=== PATIENT | female | born 1945 | race Caucasian/White ===

== ENCOUNTER 2017-06-08 13:12 | Outpatient (CLI) | payer MEDICARE, BC | END 2017-06-08 13:13 | disposition home or self-care (01) | LOC: BICMAMMO 13:12 | PROVIDERS: ATTEND Obstetrics & Gynecology | DX: Z12.31 Encounter for screening mammogram for malignant neoplasm of breast (principal) | CPT/HCPCS: 77063; 77067 ==

== ENCOUNTER 2018-05-02 16:00 | Outpatient (CLI) | payer MEDICARE, BC ==
--- NOTE | 2018-05-02 16:35 | RAD ---
CHEST TWO VIEWS: History: Consolidation, cough. Comparison: 12-29-17 FINDINGS: The lungs are clear. No pneumothorax or effusion. Cardiac silhouette and mediastinal contours are wit hin normal limits. Fibrosis of both upper lobes. Right upper quadrant surgical clips. IMPRESSION: No acute intrathoracic abnormality. POS: [facility]
== END 2018-05-02 16:01 | disposition home or self-care (01) ==
LOC: RAD-FRANK 16:00
PROVIDERS: ATTEND Nurse Practitioner Family
DX: J18.1 Lobar pneumonia, unspecified organism (principal); R05 Cough
CPT/HCPCS: 71046

== ENCOUNTER 2018-06-13 08:36 | Outpatient (CLI) | payer MEDICARE, BC ==
--- NOTE | 2018-06-13 09:50 | MMO ---
Bilateral MAMMO Bilat Screen [facility]DI+[facility]AO. CLINICAL HISTORY: Patient is 73 years old and is seen for screening. The patient has no family history of breast cancer. The patient has no personal history of cancer. VIEWS: The views performed were: bilateral craniocaudal with tomosynthesis and bilateral mediolateral oblique with tomosynthesis. FILMS COMPARED: The present examination has been compared to prior imaging studies performed at [facility] on 03/04/2012, 03/15/2013, 03/16/2014, 03/26/2015, 04/01/2016 and 06/08/2017. MAMMOGRAM FINDINGS: There are scattered fibroglandular densities. There are stable benign appearing calcifications seen in both breasts. There are no suspicious masses, suspicious calcifications, or new areas of architectural distortion. IMPRESSION: THERE IS NO MAMMOGRAPHIC EVIDENCE OF MALIGNANCY. A ROUTINE FOLLOW-UP MAMMOGRAM IN 1 YEAR IS RECOMMENDED. THE RESULTS OF THIS EXAM WERE SENT TO THE PATIENT. ACR BI-RADS Category 2 - Benign finding MAMMOGRAPHY NOTE: 1. A negative mammogram report should not delay a biopsy if a dominant of clinically suspicious mass is present. 2. Approximately 10% to 15% of breast cancers are not detected by mammography. 3. Adenosis and dense breasts may obscure an underlying neoplasm.
== END 2018-06-13 08:37 | disposition home or self-care (01) ==
LOC: BICMAMMO 08:36
PROVIDERS: ATTEND Obstetrics & Gynecology
DX: Z12.31 Encounter for screening mammogram for malignant neoplasm of breast (principal)
CPT/HCPCS: 77063; 77067

== ENCOUNTER 2019-05-30 17:49 | Inpatient (IN) | payer MEDICARE, BC ==
[2019-05-30] MEDS ORDERED: Pantoprazole 40 MG VIAL ONE (18:15)
[2019-05-30 18:23] LABS: #Basophils 0.1 thou/uL (0.0-0.2); #Eosinphils 0.1 thou/uL (0.0-0.7); #Monocytes 0.7 thou/uL (0.11-0.59); #Neutrophils 6.7 thou/uL (1.40-6.50); %Basophils 0.9 % (0.0-1.0); %Eosinophils 1.1 % (0.0-10.0); %Lymphocytes 20.6 % (21.0-51.0); %Monocytes 7.2 % (0.0-10.0); %Neutrophils 70.2 % (42.0-75.0); Mean Corpuscular HGB CONC 34.1 g/dL (32.0-36.0); Mean Corpuscular Hemoglobin 31.9 pg (27.0-31.0); Mean Corpuscular Volume 93.5 fL (78.0-98.0); Mean Platelet Volume 8.5 fL (7.4-10.4); Platelet Count 224 thou/uL (130-400); RBC Distribution Width 11.5 % (11.5-14.5); Red Blood Cell (RBC) Count 3.12 mill/uL (4.20-5.40); White Blood Cell (WBC) Count 9.6 thou/uL (4.8-10.8)
[2019-05-30 18:32] LABS: PTT 23.7 SEC (22.9-36.1); Prothrombin Time 13.2 SEC (12.0-14.7)
[2019-05-30 18:45] LABS: ALT (SGPT) 16 U/L (8-55); AST (SGOT) 19 U/L (5-34); Albumin 3.3 g/dL (3.4-4.8); Alkaline Phosphatase 61 U/L (40-110); Anion Gap 12 mmol/L (10-20); BUN (Urea Nitrogen) 39 mg/dL (9.8-20.1); Bilirubin, Total 0.2 mg/dL (0.2-1.2); Calc. Creatinine Clearance 0 mL/min (70-130); Calcium 7.9 mg/dL (7.8-10.44); Carbon Dioxide 23 mmol/L (23-31); Chloride 111 mmol/L (98-107); Estimated GFR-MDRD 78; Glucose 113 mg/dL (83-110); Potassium 4.1 mmol/L (3.5-5.1); Protein, Total 5.3 g/dL (6.0-8.3); Sodium 142 mmol/L (136-145)
--- NOTE | 2019-05-30 21:26 | HP ---
CHIEF COMPLAINT: Black stool and dizziness. HISTORY OF PRESENT ILLNESS: Ms. Villeda is a 74-year-old female with past medical history of duodenal ulcers, not on any medications except baby aspirin, presented to the emergency room with black stools for the last 3 days associated with weakness, dizziness, and fatigue. The patient has a history of GI bleeding in the past and according to her, she had ulcers and at one point, she was anemic with her hemoglobin as low as 7, requiring blood transfusions. Workup today in the emergency room, the patient's hemoglobin is 10.0. Vital signs; blood pressure is 135/80, heart rate is 85. Rectal exam done by the ED showed dark/black stools. The patient is also on IV proton pump inhibitor. The patient is being admitted to the hospital for further management. The patient denies abdominal pain, vomiting, or diarrhea. PAST MEDICAL HISTORY: Duodenal ulcers. PAST SURGICAL HISTORY: 1. Endoscopy. 2. Hysterectomy. 3. Cholecystectomy. SOCIAL HISTORY: Denies smoking, alcohol drinking, or drug abuse. FAMILY HISTORY: Reviewed and noncontributory. HOME MEDICATIONS: Please see home medication reconciliation form for updated medications. ALLERGIES: ALLERGIC TO WHEAT CONTAINING PRODUCTS. REVIEW OF SYSTEMS: Review of 14 systems negative except what is mentioned in History of Present Illness. PHYSICAL EXAMINATION: GENERAL: The patient is awake, alert, does not appear to be in distress. VITAL SIGNS: Blood pressure 135/80, pulse is 85, respiratory rate is 16, pulse oximetry is 98% on room air, and temperature 98.4. HEAD AND NECK: Normocephalic, atraumatic. NECK: Supple. No JVD. CHEST: Fair bilateral air entry. HEART: S1, S2. Regular. ABDOMEN: Soft, nontender. Bowel sounds present. RECTAL: Exam done by the ED. Please refer to the ED note. NEUROLOGIC: Awake, alert, and oriented x3. No focal findings. PSYCH: Unable to assess. EXTREMITIES: No clubbing, no cyanosis. GENITOURINARY: No suprapubic tenderness. No flank tenderness. LABORATORY DATA: Hemoglobin is 10.0 and platelets 224. Sodium is 142, potassium 4.1, chloride is 111, BUN is 39, and creatinine 0.7. ASSESSMENT: 1. Acute gastrointestinal bleeding, upper. 2. History of duodenal ulcers. 3. Anemia, secondary to blood loss. 4. Weakness. 5. Dizziness. PLAN: 1. Admit. 2. Monitor hemoglobin and hematocrit. 3. IV proton pump inhibitor drip. 4. Consult GI for evaluation and further management. 5. Reconcile home medications. 6. DVT prophylaxis appropriate. 7. Expected length of stay, 2 midnights or more. Job ID: [id number]
[2019-05-30] MEDS: Pantoprazole 80 MG in Sodium Chloride 0.9% 100 ML IVP SCH (23:16)
[2019-05-30] MEDS: Sodium Chloride 0.9% 1,000 ML IV SCH (23:16)
[2019-05-30] MEDS: Acetaminophen 325 MG TAB PO PRN (23:33)
[2019-05-30] MEDS ORDERED: Melatonin 3 MG TAB PO SCH (23:59)
[2019-05-31] LABS: Hemoglobin 8.8 g/dL (12.0-16.0)
[2019-05-31 05:45] LABS: ALT (SGPT) 14 U/L (8-55); AST (SGOT) 18 U/L (5-34); Albumin 2.7 g/dL (3.4-4.8); Alkaline Phosphatase 46 U/L (40-110); Anion Gap 9 mmol/L (10-20); BUN (Urea Nitrogen) 26 mg/dL (9.8-20.1); Bilirubin, Total 0.2 mg/dL (0.2-1.2); Calc. Creatinine Clearance 85 mL/min (70-130); Calcium 7.5 mg/dL (7.8-10.44); Carbon Dioxide 23 mmol/L (23-31); Chloride 113 mmol/L (98-107); Estimated GFR-MDRD 89; Glucose 99 mg/dL (83-110); Potassium 3.7 mmol/L (3.5-5.1); Protein, Total 4.7 g/dL (6.0-8.3); Sodium 141 mmol/L (136-145)
[2019-05-31] MEDS: Pantoprazole 80 MG in Sodium Chloride 0.9% 100 ML IVP SCH (05:48)
[2019-05-31] MEDS ORDERED: Lidocaine 1% PF 5 ML VIAL ONE (10:48)
[2019-05-31] MEDS ORDERED: PROPOFOL 200 MG/20 ML VIAL ONE (10:48)
[2019-05-31] MEDS: Sodium Chloride 0.9% 1,000 ML IV SCH (11:31)
[2019-05-31] MEDS ORDERED: Promethazine HCl 25 MG/ML VIAL IM PRN (12:51)
[2019-05-31] MEDS ORDERED: Promethazine HCl 25 MG/ML VIAL SLOW IVP PRN (12:51)
[2019-05-31] MEDS ORDERED: Ondansetron HCl/PF 4 MG/2 ML Vial IVP PRN (12:51)
--- NOTE | 2019-05-31 13:30 | OP ---
DATE OF PROCEDURE: 05/31/2019 PROCEDURE PERFORMED: Esophagogastroduodenoscopy with biopsy. PREOPERATIVE DIAGNOSIS: 74-year-old female with history of melena, dyspepsia, indigestion, and past history of bleeding ulcer. She underwent EGD. POSTOPERATIVE DIAGNOSES: 1. Normal esophageal mucosa, no esophagitis seen. 2. Normal stomach except for mild antral gastritis. 3. 1 cm sized ulceration in the duodenal bulb, nonbleeding. At the time of endoscopy, no active bleeding seen. DESCRIPTION OF PROCEDURE: The patient was placed on her left lateral position and was given sedation by Anesthesia Department. A Pentax video gastroscope under direct vision passed down the oropharynx, past the GE junction into the stomach and subsequently descending duodenum. At the time of endoscopy, no bleeding seen in the stomach or duodenum. The vocal cords appeared very healthy. The esophageal mucosa appears normal throughout. In the GE junction, no lesion seen. Retroflexion failed to show any pathology in fundus or cardia. In the gastric body, gastric incisura, no lesions. The gastric antrum showed mild antral gastritis. In the duodenal bulb, the patient was found to have an ulceration measuring 1 cm. The base also is very clean. No visible vessel is seen. In the descending duodenum, no pathology. Biopsy obtained from the gastric antrum and gastric body. The stomach decompressed and the scope removed. RECOMMENDATION: 1. Continue pantoprazole. 2. Follow up H and H. 3. Transfuse p.r.n. 4. Diet as tolerated. Job ID: [id number]
--- NOTE | 2019-05-31 14:40 | CON ---
DATE OF CONSULTATION: 05/31/2019 REASON FOR CONSULTATION: History of black tarry stool, generalized weakness, and fatigue. HISTORY OF PRESENT ILLNESS: Ms. Hughes is a very pleasant 74-year-old female, who is very healthy all the life. The patient has no history of hypertension, diabetes, heart disease, or lung disease. The patient has history of bleeding ulcer, I believe, dating back to almost 45 years ago. She had melena at that time and was hospitalized in [place], [place]. She never had endoscopy. She ulcer disease. For several years off and on, she has had this tarry stool and has had treatment for ulcer disease. The patient has done well for several years now. Her was hospitalized here with heart failure and was diagnosed to have metastatic lung cancer. He is undergoing chemotherapy. When her was in the hospital, she was having some dyspepsia, indigestion, and subsequently some GI discomfort. She has been taking some antacids off and on. The patient noticed black tarry stool about 3 days ago. The stool is tarry, and she has had stool everyday. The last time she had a stool was yesterday afternoon. She has had no stool through the night and this morning. She had no more indigestion. No more heartburn. No abdominal pain, nausea, or vomiting. Her bowel movements are fairly regular. Although she has been told to have ulcer disease with bleeding in the past, she never had endoscopy. The patient denies any dysphagia or odynophagia. The patient used to take Aleve on a regular basis twice a day for sacroiliac joint pain, but she quit taking approximately 2 years ago. She does take baby aspirin once a day everyday. She is not taking any other medication. No relevant history. ALLERGIES: DARVON. SHE IS ALLERGIC TO WHEAT-CONTAINING PRODUCTS. SOCIAL HISTORY: She is . Does not smoke or drink alcohol. MEDICAL ILLNESSES: 1. 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 2. History of bleeding ulcer more than 40 years ago and has had 2 or 3 episodes of tarry stool over the years. 3. No history of heart disease. No lung disease. No stroke. No diabetes. 4. Does have history of mild asthma, allergy induced. She is using nebulizer every now and then. SURGERIES: 1. Hysterectomy, partial. 2. Cholecystectomy. 3. She never had endoscopy studies as per the patient. FAMILY HISTORY: There is no family history of any renal malignancy, stroke, heart disease, or lung disease. MEDICATIONS: List reviewed. REVIEW OF SYSTEMS: Ten-point systems reviewed. CONSTITUTIONAL: No history of any weight loss. No fever or chills. Has good exercise tolerance. HEAD: No chronic headache. No syncope. EYES: No diplopia. No double vision. No impaired vision. EARS: No hearing loss. NOSE: No nosebleed. THROAT: No sore throat. No dysphagia. NECK: No stiffness of the joints. BREASTS: No breast masses. LUNGS: No chronic coughing. No hemoptysis, but does have history of late onset asthma and does use nebulizer off and on. CARDIOVASCULAR: No chest pain. No palpitation. No dyspnea, orthopnea, or PND. GI: Melena, dyspepsia, and indigestion recently. : No dysuria, hematuria, or frequency of urination. NEUROMUSCULAR: Not relevant. MUSCULOSKELETAL: History of arthritis and was on Aleve in the past. NEUROPSYCHIATRY: No depression or anxiety. PHYSICAL EXAMINATION: GENERAL: She is a very pleasant female, appears very comfortable. VITAL SIGNS: Her pulse is 80, blood pressure 130/80. HEENT: Conjunctivae are clear. NECK: Supple. No adenitis or thyromegaly noted. CARDIOVASCULAR: First and second heart sounds. LUNGS: Clear to auscultation. ABDOMEN: Soft. No organomegaly. No tenderness. No masses. Bowel sounds are normal. EXTREMITIES: Reveal no edema. CENTRAL NERVOUS SYSTEM: Grossly within normal limits. LABORATORY DATA: From yesterday, hemoglobin 10 and hematocrit 29.2; dropping to 8.8 this morning. WBC 9600, platelet count 224,000, polymorphs 70, lymphocytes 20. Serum chemistries today; sodium 141, potassium 3.7, chloride 113, bicarb 23, BUN is 26 which was 39 yesterday, creatinine 0.65, calcium 7.5, bilirubin 0.2, AST 18, ALT 18, alkaline phosphatase 46. Troponin 0.013. Albumin 2.7. CLINICAL IMPRESSION: 1. A 74-year-old female with history of black tarry stool over the last 3 days. She has anemia on admission. Blood count on admission, hemoglobin 10, dropping to 8.8 today. Her BUN elevated to 39, dropping to 26 today. Based on the history and her lab data, I believe she has bleeding mostly from ulcer disease. 2. History of mild asthma with episodes of wheezing. 3. History of wheat intolerance. 4. Cholecystectomy. 5. Partial hysterectomy. PLAN: 1. Continue PPI. 2. Serial H and H. 3. Transfuse p.r.n. 4. EGD later on today. I will make further recommendations after EGD. Job ID: [id number]
[2019-05-31] MEDS: Acetaminophen 325 MG TAB PO PRN (15:27)
--- NOTE | 2019-05-31 17:44 | PDOC.HOSPP ---
- Subjective Encounter Date: 05/31/19 Encounter Time: 08:45 Subjective: pt up in chair feels a bit dizzy. - Objective Vital Signs & Weight: Vital Signs (12 hours) Temp Pulse Resp BP Pulse Ox 05/31/19 16:28 98.0 F 91 18 108/67 98 05/31/19 13:31 97.9 F 92 18 146/70 H 99 05/31/19 12:00 98.0 F 85 18 128/57 L 98 05/31/19 09:41 98.3 F 84 18 130/56 L 98 05/31/19 08:45 98 Weight Weight 153 lb 6 oz I&O: 05/30/19 05/31/19 06/01/19 06:59 06:59 06:59 Intake Total 630 Output Total 700 Balance -70 Result Diagrams: 05/30/19 23:53 05/31/19 04:13 Hospitalist ROS - Review of Systems Respiratory: denies: cough, dry, shortness of breath, hemoptysis, SOB with excertion, pleuritic pain, sputum, wheezing, other Cardiovascular: reports: light headedness. denies: chest pain, palpitations, orthopnea, paroxysmal noc. dyspnea, edema, other Gastrointestinal: reports: melena. denies: nausea, vomiting, abdominal pain, diarrhea, constipation, other - Medication Medications: Active Medications Generic Name Dose Route Start Last Admin Trade Name Freq PRN Reason Stop Dose Admin Acetaminophen 650 mg 05/30/19 23:20 05/31/19 15:27 Tylenol PO 650 mg Q4H PRN Administration Headache/Fever or Pain Sodium Chloride 1,000 mls @ 75 mls/hr 05/30/19 20:45 05/31/19 11:31 Normal Saline 0.9% IV 1,000 mls .[id number] CATRACHITO Administration - Exam Neck: negative: supple, symmetric, no JVD, no thyromegaly, no lymphadenopathy, no carotid bruit, JVD Heart: negative: RRR, no murmur, no gallops, no rubs, normal peripheral pulses, irregular, diminshed peripheral pulses, murmur present, II/IV, III/IV Respiratory: negative: CTAB, no wheezes, no rales, no ronchi, normal chest expansion, no tachypnea, normal percussion, rales, rhonchi, tachypneic, wheezes Gastrointestinal: negative: soft, non-tender, non-distended, normal bowel sounds , no palpable masses, no hepatomegaly, no splenomegaly, no bruit, no guarding, no rigidity, tender to palpation, distended, diminished bowl sounds, voluntary guarding Hosp A/P (1) Melena Code(s): K92.1 - MELENA Status: Acute (2) Acute blood loss anemia Code(s): D62 - ACUTE POSTHEMORRHAGIC ANEMIA Status: Acute - Plan pt only takes asa for preventative reasons. she has no heart disease and does not take any rx drugs. will continue ppi. she has had melena in the past. she has never had a upper endoscopy in the past. this will be her 4th episode. will check hh and transfuse as needed. gi has been consulted.
[2019-05-31] MEDS ORDERED: Melatonin 3 MG TAB PO SCH (21:00)
[2019-06-01 05:42] LABS: #Basophils 0.1 thou/uL (0.0-0.2); #Eosinphils 0.4 thou/uL (0.0-0.7); #Lymphocytes 2.7 thou/uL (1.20-3.40); #Monocytes 0.6 thou/uL (0.11-0.59); #Neutrophils 4.4 thou/uL (1.40-6.50); %Basophils 1.1 % (0.0-1.0); %Eosinophils 5.1 % (0.0-10.0); %Lymphocytes 33.1 % (21.0-51.0); %Monocytes 6.8 % (0.0-10.0); Hemoglobin 8.5 g/dL (12.0-16.0); Mean Corpuscular HGB CONC 34.5 g/dL (32.0-36.0); Mean Corpuscular Hemoglobin 32.3 pg (27.0-31.0); Mean Corpuscular Volume 93.8 fL (78.0-98.0); Mean Platelet Volume 8.7 fL (7.4-10.4); Platelet Count 200 thou/uL (130-400); RBC Distribution Width 12.1 % (11.5-14.5); Red Blood Cell (RBC) Count 2.64 mill/uL (4.20-5.40); White Blood Cell (WBC) Count 8.1 thou/uL (4.8-10.8)
[2019-06-01] MEDS: Sodium Chloride 0.9% 1,000 ML IV SCH ×2 (06:00→11:43)
[2019-06-01] MEDS: Acetaminophen 325 MG TAB PO PRN (06:02)
[2019-06-01 06:32] VITALS: BMI 28.3
--- NOTE | 2019-06-01 13:18 | DIS ---
DATE OF ADMISSION: 05/30/2019 DATE OF DISCHARGE: 06/01/2019 DISCHARGE DIAGNOSES: 1. Acute blood loss anemia. 2. Duodenal ulcer, nonbleeding. HOSPITAL COURSE: The patient is a very pleasant 74-year-old female with no past medical history, who came into the hospital with melena. She was found to have anemia and did not require any blood transfusions. She underwent an endoscopy by GI and was found to have one size small ulceration in the duodenal bulb, nonbleeding. Normal stomach except for some mild gastritis was noted. The patient at this time was watched overnight. She tolerated her meal. Her H and H were stable and she will be discharged home. Her H and H on discharge were 8.5. DISCHARGE MEDICATIONS: Her home medications will be; 1. Colace 100 mg as needed. 2. Iron 325 daily. 3. Multivitamin one p.o. daily. 4. Protonix 40 mg p.o. daily for three months. FOLLOWUP: She will follow up with GI as outpatient. PHYSICAL EXAMINATION: VITAL SIGNS: Temperature 98.3, pulse 93, respiratory rate 18, saturations 96% on room air, blood pressure 130/75. GENERAL: She is awake, alert, oriented x3, and in no pain distress. CV: S1, S2 present. No murmurs, rubs, or gallops. DISCHARGE INSTRUCTIONS: Again, she will be discharged home. She will follow up with her primary and also the GI. Job ID: [id number]
[2019-06-01 14:47] VITALS: BP 127/79; TEMP 98.2
--- NOTE | 2019-06-01 15:42 | PRG ---
DATE OF SERVICE: 06/01/2019 SUBJECTIVE: Ms. Ellen Villeda is a very pleasant 74-year-old female, hospitalized with anemia due to blood loss, history of black tarry stool. The patient has been having some indigestion, dyspepsia over the last 3 to 4 weeks. The patient had past history of bleeding peptic ulcer. She underwent EGD yesterday and was found to have ulcer in the duodenal bulb, nonbleeding. The gastric biopsy that was obtained shows negative Helicobacter pylori. The admitting hemoglobin was 10, which is dropped to 8.5. She has had another serial H and H. The blood count is pretty stable around 8.5. The initial drop was most likely from dehydration. Her BUN was 39 on admission, dropped to 26 yesterday. The patient had no stool. She is tolerating regular diet. No abdominal pain. No nausea. No vomiting. OBJECTIVE: GENERAL: Appears very comfortable. VITAL SIGNS: Stable, afebrile, pulse is 95, blood pressure is 127/79. HEENT: Conjunctivae clear. CARDIOVASCULAR: First and second heart sounds normal. LUNGS: Clear to auscultation. ABDOMEN: Soft. No organomegaly. No tenderness. No masses. EXTREMITIES: Reveal no edema. IMPRESSION: 1. Gastrointestinal bleeding. 2. Anemia due to blood loss. 3. Duodenal ulcer, nonbleeding. RECOMMENDATION: 1. I would advise Ms. Villeda to not to take any aspirin or any NSAID medication. She is advised to take Tylenol for headache as needed. 2. Pantoprazole 40 once a day. She needs long-term maintenance because of bleeding ulcer disease. 3. History of mild asthma. 4. The patient was informed about negative Helicobacter pylori biopsy. She is advised to come back to me in 2 months. Job ID: [id number]
== END 2019-06-01 15:06 | disposition home or self-care (01) | DRG 378 ==
LOC: ERS 17:49 → 2NO 20:29 → T4-B 05-31 13:44
PROVIDERS: ADMIT Internal Medicine; ATTEND Internal Medicine
PROC: 0DB98ZX Excision of Duodenum, Via Natural or Artificial Opening Endoscopic, Diagnostic (ICD-10-PCS; principal; 2019-05-31)
DX: K92.2 Gastrointestinal hemorrhage, unspecified (principal); D62 Acute posthemorrhagic anemia; E86.0 Dehydration; J45.909 Unspecified asthma, uncomplicated; Z90.710 Acquired absence of both cervix and uterus; Z90.49 Acquired absence of other specified parts of digestive tract
CPT/HCPCS: 36415; 80053; 82274; 84484; 85014; 85018; 85025; 85610; 85730; 88305; 88312; 93005; 94760; 96361; 96374; C9113; J2001; J2704; J3490

== ENCOUNTER 2019-08-01 13:08 | Outpatient (CLI) | payer MEDICARE, BC ==
--- NOTE | 2019-08-01 14:18 | MMO ---
Bilateral MAMMO Bilat Screen [facility]. CLINICAL HISTORY: Patient is 74 years old and is seen for screening. The patient has no family history of breast cancer. The patient has no personal history of cancer. VIEWS: The views performed were: bilateral craniocaudal with tomosynthesis and bilateral mediolateral oblique with tomosynthesis. FILMS COMPARED: The present examination has been compared to prior imaging studies performed at [facility] on 03/26/2015, 04/01/2016, 06/08/2017 and 06/13/2018. This study has been interpreted with the assistance of computer-aided detection. MAMMOGRAM FINDINGS: There are scattered fibroglandular densities. Benign calcifications are noted bilaterally. There are no suspicious masses, suspicious calcifications, or new areas of architectural distortion. IMPRESSION: THERE IS NO MAMMOGRAPHIC EVIDENCE OF MALIGNANCY. A ROUTINE FOLLOW-UP MAMMOGRAM IN 1 YEAR IS RECOMMENDED. THE RESULTS OF THIS EXAM WERE SENT TO THE PATIENT. ACR BI-RADS Category 2 - Benign finding MAMMOGRAPHY NOTE: 1. A negative mammogram report should not delay a biopsy if a dominant of clinically suspicious mass is present. 2. Approximately 10% to 15% of breast cancers are not detected by mammography. 3. Adenosis and dense breasts may obscure an underlying neoplasm. Reported by: NATASHA MORALES MD Electonically Signed: [id number]
== END 2019-08-01 13:09 | disposition home or self-care (01) ==
LOC: BICMAMMO 13:08
PROVIDERS: ATTEND Obstetrics & Gynecology
DX: Z12.31 Encounter for screening mammogram for malignant neoplasm of breast (principal)
CPT/HCPCS: 77063; 77067

== ENCOUNTER 2020-07-17 10:56 | Outpatient (CLI) | payer MEDICARE, BC | END 2020-07-17 10:57 | disposition home or self-care (01) | LOC: BICRAD 10:56 | PROVIDERS: ATTEND Internal Medicine Critical Care Medicine | DX: R06.00 Dyspnea, unspecified (principal) | CPT/HCPCS: 71046 ==

== ENCOUNTER 2020-08-15 10:35 | Outpatient (CLI) | payer MEDICARE, BC | END 2020-08-15 10:36 | disposition home or self-care (01) | LOC: BICMAMMO 10:35 | PROVIDERS: ATTEND Obstetrics & Gynecology | DX: Z12.31 Encounter for screening mammogram for malignant neoplasm of breast (principal) | CPT/HCPCS: 77063; 77067 ==